=== PATIENT | female | born 1950 | race Caucasian/White ===

== ENCOUNTER → 2020-01-17 | Outpatient (CLI) | payer OTHER ==
[~2020-01-17] VITALS: Ht 162.6 cm; Wt 81.6 kg
[~2020-01-17] MED LIST: FLEXERIL PO; IRON325 M1 PO; LISINOPRIL2.5 MG PO; UNICOMPLEX M TA1 TA1 PO
[2020-01-17 12:20] VITALS: BP 151/65
[2020-01-17 13:30] VITALS: BP 141/69
--- NOTE | 2020-01-17 14:36 | NUR ---
IN FOR 1ST INJECTAFER INFUSION. ADMISSION HISTORY AND ASSESSMENT COMPLETED. MEDICATIONS RECONCILED. IV STARTED IN RIGHT FOREARM X 1 STICK. TOLERATED INFUSION WITHOUT INCIDENT. OBSERVED FOR 30 MINUTES. POST BLOOD PRESSURE GOOD. REMOVED IV AND DISMISSED IN GOOD CONDITION.
== END ==
LOC: OPONC 10:38
DX: D64.9 Anemia, unspecified (principal)
CPT/HCPCS: 95000

== ENCOUNTER → 2020-01-24 | Outpatient (CLI) | payer OTHER ==
[2020-01-24 10:45] VITALS: BP 138/63
[2020-01-24 12:14] VITALS: BP 128/71
--- NOTE | 2020-01-24 13:47 | NUR ---
IN FOR 2ND INJECTAFER INFUSION. STATED HAD NO SIDE EFFECTS AFTER 1ST INFUSION LAST WEEK AND IS FEELING STRONGER. TOLERATED INFUSION WITHOUT INCIDENT. OBSERVED FOR 30 MINUTES. POST BP GOOD. REMOVED IV AND DISMISSED IN GOOD CONDITION.
== END ==
LOC: OPONC 10:32
DX: D64.9 Anemia, unspecified (principal)
CPT/HCPCS: 95000

== ENCOUNTER → 2021-01-28 | Outpatient (CLI) | payer OTHER | LOC: MRI 11:27 | PROVIDERS: ATTEND Family Medicine | DX: S83.241A Other tear of medial meniscus, current injury, right knee, initial encounter (principal); M25.461 Effusion, right knee; M71.21 Synovial cyst of popliteal space [Baker], right knee; M25.861 Other specified joint disorders, right knee; X58.XXXA Exposure to other specified factors, initial encounter; Y93.89 Activity, other specified; Y92.89 Other specified places as the place of occurrence of the external cause; Y99.8 Other external cause status ==